=== PATIENT | male | born 1950 | race Caucasian/White ===

== ENCOUNTER 2018-07-30 09:56 | Emergency (ER) | payer OTHER ==
[~2018-07-30] VITALS: Ht 175.3 cm; Wt 81.0 kg
[2018-07-30] MEDS ORDERED: ONDANSETRON HCL 4MG/2ML INJ IV STA (10:31)
[2018-07-30] MEDS ORDERED: MORPHINE SULFATE 4 MG/ML CPJ (NOT FOR IM USE) IV STA (10:31)
[2018-07-30] MEDS ORDERED: SODIUM CHLORIDE 0.9% 1,000 ML IV ONE (10:31)
[2018-07-30 11:03] LABS: HEMATOCRIT. 42.6 % (42.0-52.0); HEMOGLOBIN. 14.7 g/dL (14.0-18.0); MEAN CORPUSCULAR VOLUME 86.8 fL (80.0-94.0); PLATELET 209 x1000/uL (130-400); RED BLOOD CELL COUNT 4.91 mill/uL (4.7-6.1); RED CELL DISTRIBUTION WIDTH 13.5 % (11.6-14.6)
[2018-07-30 11:04] LABS: CLARITY URINE CLEAR (CLEAR); COLOR URINE YELLOW (YELLOW); KETONES URINE NEGATIVE (NEGATIVE); LEUKOCYTE ESTERASE URINE NEGATIVE (NEGATIVE); NITRITE URINE NEGATIVE (NEGATIVE); OCCULT BLOOD URINE 2+ (NEGATIVE); PROTEIN URINE 2+ (NEGATIVE); UROBILINOGEN URINE 0.2 E.U./dL (0.2-1.0)
[2018-07-30 11:04] LABS: CHLORIDE 105 mEq/L (98-107)
[2018-07-30 11:07] LABS: PROTHROMBIN TIME 9.9 sec (9.1-11.1)
[2018-07-30 11:25] LABS: PLATELET ESTIMATE NORMAL
[2018-07-30] MEDS ORDERED: KETOROLAC 15MG/ML VIAL IV ONE (13:15)
[2018-07-30] MEDS ORDERED: IOHEXOL-350 100 ML BOTTLE ONE (13:46)
[2018-07-30 14:47] VITALS: BP 131/57
== END 2018-07-30 14:49 | disposition home or self-care (01) ==
LOC: ER 09:56
DX: N20.1 Calculus of ureter (principal); N13.30 Unspecified hydronephrosis; N13.4 Hydroureter; I25.2 Old myocardial infarction; I25.10 Atherosclerotic heart disease of native coronary artery without angina pectoris
CPT/HCPCS: 36415; 71275; 74174; 80053; 81003; 83690; 85025; 85610; 96361; 96374; 96375; 99285; J1885; J2270; J2405; J7030; Q9967